=== PATIENT | female | born 1960 | race Caucasian/White ===

== ENCOUNTER → 2021-01-06 | Outpatient (CLI) | payer OTHER ==
--- NOTE | 2021-01-06 15:10 | US ---
EXAMINATION TYPE: US thyroid st tissue head/neck DATE OF EXAM: 01/06/2021 COMPARISON: NONE CLINICAL HISTORY: E04.1 Thyroid nodule. Daughter has thyroid nodules per patient. GLAND SIZE: Right Lobe: 4.5 x 1.9 x 1.4 cm Overall Parenchyma: heterogenous Left Lobe: 4.5 x 1.7 x 1.9 cm Overall Parenchyma: heterogeneous Isthmus Thickness: 0.3 cm NODULES RIGHT: # of nodules measured on right: 3 largest of multiple 1. 0.6 X 0.5 x 0.3 cm, mid , cystic, anechoic nodule, which is wider than tall, with smooth margins , without echogenic foci. 2. 0.8 X 0.7 x 0.5 cm, lower mixed cystic and solid, hypoechoic nodule, which is wider than tall, with smooth margins, without echogenic foci. 3. 0.3 X 0.3 x 0.2 cm, upper, spongiform, hypoechoic nodule, which is wider than tall, with lobulat ed or irregular margins, without echogenic foci. LEFT: # of nodules measured on left: 3 largest of multiple 1. 0.6 X 0.6 x 0.4 cm, upper, mixed cystic and solid, hypoechoic nodule, which is wider than tall, with smooth margins, without echogenic foci. 2. 1.0 X 1.2 x 0.9 cm, lower, mixed cystic and solid, hypoechoic nodule, which is wider than tall, with lobulated or irregular margins, without echogenic foci. 3. 0.8 X 0.6 x 0.6 cm, mid lateral, mixed cystic and solid, hypoechoic nodule, which is wide as is tall, with ill-defined margins, without echogenic foci. ISTHMUS: # of nodules measured in the isthmus: 0 Bilateral neck scanned: superior to right thyroid lymph node is seen = 1.6 x 1.2 x 0.4cm and superior to left thyroid a lymph node is measured = 2.6 x 1.1 x 0.7cm. IMPRESSION: Bilateral thyroid nodules, as described. 2017 ACR TI-RADS LEVEL: TR-RADS 4 - Moderately Suspicious: Follow if > 1 cm, FNA if > 1.5 cm *Highest TI-RADS level nodule reported
== END | disposition home or self-care (01) ==
LOC: RADUSWWP 13:44
PROVIDERS: ATTEND Psychiatry & Neurology Neurology
DX: E04.2 Nontoxic multinodular goiter (principal)
CPT/HCPCS: 76536